=== PATIENT | female | born 1990 | race Caucasian/White ===

== ENCOUNTER 2023-04-28 00:23 | Emergency (ER) | payer MEDICAID ==
[~2023-04-28] VITALS: Ht 165.1 cm; Wt 55.3 kg
[2023-04-28] MEDS ORDERED: HYDR-3972 PO (01:00)
[2023-04-28] MEDS ORDERED: HYDROCODONE/APAP 5/325MG TABLET ONE (01:02)
[2023-04-28] MEDS: HYDROCODONE/APAP 5/325MG TABLET PO ONE (01:03)
[2023-04-28 01:40] VITALS: BP 135/81; TEMP 98; O2SAT 98
== END 2023-04-28 01:41 | disposition home or self-care (01) ==
LOC: ER 00:32
DX: S82.032A Displaced transverse fracture of left patella, initial encounter for closed fracture (principal); W18.30XA Fall on same level, unspecified, initial encounter; Y93.89 Activity, other specified; Y92.89 Other specified places as the place of occurrence of the external cause; Y99.8 Other external cause status
CPT/HCPCS: 73564-TC

== ENCOUNTER 2023-04-28 23:10 | Emergency (ER) | payer MEDICAID ==
[~2023-04-28 23:10] MED LIST: HYDR-3972 PO
== END 2023-04-28 23:11 | disposition home or self-care (01) ==
LOC: ER 23:11
DX: Z53.21 Procedure and treatment not carried out due to patient leaving prior to being seen by health care provider (principal)